=== PATIENT | female | born 1990 | race African-American/Black ===

== ENCOUNTER 2025-01-11 11:20 | Outpatient (AMB) | payer OTHER, SELFPAY ==
--- NOTE | 2025-01-11 11:25 | A.OFFPC_ITS ---
Vital Signs 01/11/25 11:31 Height 5 ft 7.13 in Weight 84.822 kg BMI 29.2 BP 104/60 Blood Pressure Location Lt brachial Position Sitting Respiration 18 Pulse 86 Pulse Source Pulse Oximeter Temp 97.8 F Temp Source Temporal Artery Scan Pulse Oximetry (%) 99 Oxygen Delivery Method Room Air Intake Visit Reasons: Establish Care/ New Patient Adult And Pediatric Neurologist Required: No Accompanied by: Self / Same As Patient Allergies No Known Allergies Allergy (Verified 01/11/25 11:25) Tobacco use date assessed: 01/11/25 Dental Screening Dental Screen Date: 01/11/25 Did you have a dental visit in the last 12 months?: Yes Did you have a dental problem in the last 6 months where you did not have access to dental care?: No Was dental information given to patient?: Patient has dentist HPI HPI Comments History of Present Illness Details 34-year-old female with history of SLE, right lower extremity DVT, Guillain- [place] presenting to the office today for annual physical exam and to establish care. Lives with her fiance and feels safe there. Not working currently, looking though in [employer]. Alcohol use once monthly, consumes about 2-3 per session. No history of cigarette smoking. No illicit drugs. MJ edibles. Exercises with strength training 4x per week. Health diet overall. Follows a healthy diet. She was previously seeing a PCP out of [facility] in [place] and recently moved to the area. SLE- Presents with arthralgias and fatigue typically. Follows with Rheumatology as well as Nephrology at [facility]. Follows every 3-6 months. Currently stable. On Benlysta, hydroxychloroquine, mycophenolate as well as chronic prednisone. [id number], unclear cause, hospitalized at [facility] RLE DVT -2022. Anticoagulated with Eliquis x6 months. Believe to be provoked following a plane ride Concerns: Lump with bordering ?divot? in the medial aspect of the right lower leg. No pain. No difficulty ambulating Reports recent black spots about the size of a quarter going up the back of the right calf but has since resolved and is at present in the office today Health Maintenance: Eye exams - [facility] annually. Wears corrective lenses, occasional contacts Dentist twice yearly [employer]- in [facility] [employer], next appt next month, pap smears UTD Mammos to start at age 41 Colonoscopy age 46 UTD with all vaccines except flu Sun screen with prolonged exposure Reviewed past medical, surgical, family, social history ROS: General: No fevers, malaise, unintentional weight loss HEENT: No blurred vision, diplopia. No sore throat, nasal congestion, rhinorrhea, sinus pain, ear pain. No hearing loss Neck - no adenopathy Cardiovascular: No chest pain, palpitations, or leg edema Respiratory: No shortness of breath, wheezing, cough Breast: No pain, palpable lumps, nipple inversion GI: No dysphagia, odynophagia, globus sensation. No abdominal pain, nausea, vomiting, diarrhea, constipation, melena, hematochezia : No dysuria, hematuria, increased urinary frequency, decreased urinary output. T[employer] ENGINEER: No abn vaginal bleeding or discharge MSK: No myalgia, back pain, arthralgias Neuro: No headaches, weakness, paresthesias Psych: no depression/anxiery. No AH/VH. No SI/HI Skin: No rashes or . see hpilesions EXAM: Constitutional - Awake and Alert, No apparent distress Eyes - PERRLA, EOMI. Anicteric Ears - external ears normal, canals clear, TMs intact and pearly [place] with good cone of light Nose- septum midline, nares clear, no sinus tenderness Mouth/throat- mucosa moist, tongue and uvula midline, no erythema/edema or tonsillar adenopathy. Neck-trachea midline, thyroid symmetric without palpable nodules, no adenopathy Cardiovascular - S1S2, RRR, No edema Respiratory - Normal lung expansion, Normal respiratory effort, No respiratory distress, CTA bilaterally Gastrointestinal - NT / ND; +BS; No rebound or guarding - No CVA tenderness Extremities - no calf tenderness bilaterally, no swelling Musculoskeletal - Normal inspection, normal ROM Skin - Warm/Dry, no concerning lesions. Small soft tissue mass, nontender, nonmobile medial aspect R lower leg. 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 1. Little interest or pleasure in doing things: not at all 2. Feeling down, depressed, or hopeless: not at all 3. Trouble falling or staying asleep, or sleeping too much: not at all 4. Feeling tired or having little energy: not at all 5. Poor appetite or overeating: not at all 6. Feeling bad about yourself - or that you are a failure or have let yourself or your family down: not at all 7. Trouble concentrating on things, such as reading the newspaper or watching television: not at all 8. Moving or speaking so slowly that other people could have noticed. Or the opposite - being so fidgety or restless that you have been moving around a lot more than usual: not at all 9. Thoughts that you would be better off or of hurting yourself in some way: not at all Total score: 0 Depression Screening Interpretation: Negative Depression Screening Done: Yes 36530 - PHQ-9 Billing: Yes Source: Developed by Drs. Juanjose Faustin, Denise Mobley, Basim Adames and colleagues, with an educational renae from [employer]. Thrive Questionnaire I am a: Patient What is your living situation today?: I have a steady place to live Within the past 12 months, did the food you bought not last and you didn't have the money to get more?: Never true Within the past 12 months, did you worry whether your food would run out before you got money to buy more?: Never true Do you have trouble paying for medicines?: No Do you have trouble getting transportation to medical appointments?: No Do you have trouble paying your heating and electricity bill?: No Do you have trouble taking care of your child, family member or friend?: No Do you have trouble with day-to-day activities such as bathing, preparing meals, shopping, managing finances, etc.?: No Are you currently unemployed and looking for a job?: Yes Are you interested in more education?: No Please select the resources that you would like help with: None Currently or been in a relationship where the following occur: No concerns reported THRIVE Score: 0 AUDIT C Alcohol Use Questionnaire (AUDIT-C) 1. How often do you have a drink containing alcohol?: Monthly or less 2. How many drinks containing alcohol do you have on a typical day when you are drinking?: 1 or 2 3. How often do you have six or more drinks on one occasion?: Never Total Score: 1 JA-7 AMB Questionnaire JA-7 Feeling nervous, anxious, or on edge: 0 = Not at all Not being able to stop or control worryin = Not at all Worrying too much about different things: 0 = Not at all Trouble relaxin = Not at all Being so restless that it is hard to sit still: 0 = Not at all Becoming easily annoyed or irritable: 0 = Not at all Feeling afraid as if something awful might happen: 0 = Not at all Total JA-7 score (0-4 normal; 5-9 mild; 10-14 moderate; 15-21 severe): 0 Source: Developed by Drs. Juanjose Faustin, Denise Mobley, Basim Adames and colleagues, with an educational renae from [employer]. Physical exam (Primary Care) Vital Signs: Last Vital Signs Temp 97.8 F 01/11/25 11:31 Pulse 86 01/11/25 11:31 Resp 18 01/11/25 11:31 BP 104/60 01/11/25 11:31 Pulse Ox 99 01/11/25 11:31 Oxygen Delivery Method Room Air 01/11/25 11:31 BMI result Body Mass Index 29.2 Tobacco/Smoking Status: Tobacco use Status Tobacco use date assessed 01/11/25 01/11/25 11:33 Patient Tobacco Use Status Never used Tobacco 01/11/25 11:33 e-Cigarette/Vaping Use Never Used 01/11/25 11:33 PHQ-9: PHQ-9 Score PHQ-9: Total score 0 01/11/25 11:51 Depression Screening Interpretation: Negative Currently or been in a relationship where the following occur: No concerns reported Coding Level of Care Code New Pt Prev Care 18-39yr(45294 Diagnoses Encounter for routine history and physical examination Z00.00 Right leg DVT I82.401 Mass of lower extremity R22.40 Additional Codes PHQ-9 - 52860 - PHQ-9 Billing: Yes ([id number]) Assessment & Plan Assessment & Plan (1) Encounter for routine history and physical examination: Code(s): Z00.00 - Encounter for general adult medical examination without abnormal findings Plan: 34-year-old female presenting for annual physical exam. Plan as below. (2) Right leg DVT: Comment: 2022. Was on eliquis x 6 months. Code(s): I82.401 - Acute embolism and thrombosis of unspecified deep veins of right lower extremity Category: Medical Plan: Provoked. Completed 6 months of anticoagulation (3) Mass of lower extremity: Code(s): R22.40 - Localized swelling, mass and lump, unspecified lower limb Category: Medical Plan: Ultrasound of the right lower extremity ordered for further evaluation. 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 Mammogram started age 41, colonoscopies at age 46 Continue following for annual skin exams and use sun protection Annual eye exams Dental exams twice yearly Wear seat belt in car Recommend regular exercise and healthy diet Follow-up in the office in 1 year, sooner if needed Orders: Orders Basic Metabolic Panel Today Z00.00 - Encounter for general adult medical examination without abnormal findings Complete Blood Count Auto Diff Today Z00.00 - Encounter for general adult medical examination without abnormal findings Hemoglobin A1c Today Z00.00 - Encounter for general adult medical examination without abnormal findings Liver Panel Today Z00.00 - Encounter for general adult medical examination without abnormal findings Lipid Panel Today Z00.00 - Encounter for general adult medical examination without abnormal findings Vitamin D 25-OH Total Today Z00.00 - Encounter for general adult medical examination without abnormal findings Vitamin B12 and Folate Today Z00.00 - Encounter for general adult medical examination without abnormal findings US Extremity Nonvas Limited RT Today R22.40 - Localized swelling, mass and lump, unspecified lower limb
[2025-01-11 11:31] VITALS: BP 104/60; PULSE 86; RESP 18; TEMP 36.6; O2SAT 99; BMI 29.2
== END 2025-01-11 12:04 | disposition home or self-care (01) ==
LOC: HO.HMCHD 11:21
PROVIDERS: PCP Physician Assistant; Visit Provider Physician Assistant
DX: Z00.00 Encounter for general adult medical examination without abnormal findings (principal); I82.401 Acute embolism and thrombosis of unspecified deep veins of right lower extremity; R22.40 Localized swelling, mass and lump, unspecified lower limb

== ENCOUNTER → 2025-01-11 11:20 | Outpatient (BNVA) | payer OTHER, SELFPAY | PROVIDERS: PCP Physician Assistant; Visit Provider Physician Assistant | DX: Z00.00 Encounter for general adult medical examination without abnormal findings (principal); Z76.89 Persons encountering health services in other specified circumstances; R22.41 Localized swelling, mass and lump, right lower limb; M32.9 Systemic lupus erythematosus, unspecified; Z86.718 Personal history of other venous thrombosis and embolism; Z13.31 Encounter for screening for depression | CPT/HCPCS: 96127 ==

== ENCOUNTER 2025-01-11 12:33 | Outpatient (REF) | payer OTHER, SELFPAY ==
[2025-01-11 13:26] LABS: MANUAL DIFF FLAG NO
[2025-01-11 13:47] LABS: Hematocrit 40.7 % (37.0-47.0); Hemoglobin 13.2 g/dl (12.0-16.0); Imm Gran Abs Auto 0.04 X10*3/uL (0.00-0.03); Imm Gran Pct Auto 0.4 % (0.0-0.4); Lymphocytes Absolute Auto 0.8 X10*3/uL (1.2-4.9); Mean Corpuscular HGB Conc 32.4 g/dl (31.0-35.0); Mean Corpuscular Hemoglobin 29.7 pg (27.0-33.0); Mean Corpuscular Volume 91.5 fL (80.0-98.0); NRBC Abs Auto 0.000 X10*3/uL (0.0-0.012); NRBC Pct Auto 0.0 /100WBC (0.0-0.2); Platelet Count 263 X10*3/uL (160-400); Red Blood Count 4.45 X10*6/uL (4.20-5.50); White Blood Count 8.9 X10*3/uL (4.8-10.8)
[2025-01-11 14:07] LABS: Alanine Aminotransferase 18 U/L (0-31); Albumin Level 3.8 g/dL (3.5-5.0); Alkaline Phosphatase 59 U/L (39-117); Anion Gap 10 (12-20); Aspartate Amino Transferase 32 U/L (5-31); Blood Urea Nitrogen 16 mg/dL (9-16); Calcium 9.2 mg/dL (8.4-10.2); Carbon Dioxide 25 mmol/L (22-29); Chloride 106 mmol/L (96-108); Cholesterol 137 mg/dL (<200); Estimated Glomerular Filt Rate > 60; HDL Cholesterol 41 mg/dL (>40); Potassium 3.8 mmol/L (3.3-5.1); Sodium 137 mmol/L (135-145); Total Protein 6.9 g/dL (6.5-8.0); Triglycerides 86 mg/dL (<150)
[2025-01-11 14:43] LABS: Folate 7.8 ng/mL (> or = 4.0); Vitamin B12 654 pg/mL (200-900)
--- OUTSIDE RECORDS SUMMARY | 2025-01-12 01:06 | XMS_ITS | Clinical Summary ---
Author Organization [facility] Address [address] [place] [address] Phone Care Team Providers Care Animal Cruelty Investigator Name Role Phone Physician, No Pcp Primary Care Provider Unavaila ble Allergies No known active allergies Medications No known medications Medical History Medical History Date Comments SLE (systemic lupus erythema tosus) ([facility] V24, [facility] V28) DX:SLE (systemic lupus eryt hematosus) ([facility]) History of eczema DX:History of eczema Social History Tobacco Use Types Packs/Day Years Used Date Smoking Tobacco: Never Smokeless Tobacco: Never Comments Unknown Sex and Gender Information Value Date Recorded Sex Assigned at Female 02/27/2024 7:11 PM EST Legal Sex Female 8:25 PM EST Gender Identity Female 02/27/2024 7:11 PM EST Sexual Orientation Straight 02/27/2024 7: 11 PM EST Obstetrics History Last Filed Vital Signs Vital Sign Reading Time Taken Comments Blood Pressure 113/76 02/27/2024 3:53 PM EST Pulse 73 02/27/2024 3:53 PM EST Temperature 36.5 C (97.7 F) 02/27/2024 3:53 PM EST Respiratory Rate 18 02/27/2024 3:53 PM EST Oxygen Saturation 97% 02/27/2024 3:53 PM EST Inhaled Oxygen Concentration - - Weight 83.9 kg (185 lb) 02/27/2024 3:53 PM EST Height 172.7 cm (5' 8 ) 02/27/2024 3:53 PM EST Body Mass Index 28.13 02/27/2024 3:53 PM EST Plan of Treatment Health Maintenance Due Date Last Done Comments DTaP,Tdap,and Td Vaccines (1 - Tdap) 09/30/2010 Hepatitis B Vaccines (1 of 3 - 19+ 3-dose series) 09/30/2010 Pneumococcal Vaccine: Pediatrics (0 to 5 Years) and At-Risk Patients (6 to 49 Years) (1 of 2 - PCV) 09/30/2010 HPV Vaccines (1 - Risk 3-dos e SCDM series) 09/30/2018 COVID-19 Vaccine (3 - Pfizer risk series) 07/01/2020 06/03/2020, 05/06/2020 Depression Screening 02/26/2024 HIV Screening 02/28/2024 Hepatitis C Screening 02/28/2024 Social Influencers of Health Screening 02/28/2024 Influenza Vaccine (#1) 2024 Cervical Cancer Screening: P ap Smear 04/08/2027 04/08/2024 RSV Immunization Adult Patients (1 - 1-dose 75+ series) 09/30/2066 HIB Vaccines Aged Out No longer eligi ble based on patient's age to complete this topic Hepatitis A Vaccines Aged Out No long er eligible based on patient's age to complete this topic IPV Vaccines Aged Out No longer eligi ble based on patient's age to complete this topic MMR Vaccines Aged Out No longer eligi ble based on patient's age to complete this topic Meningococcal ACWY Vaccine Aged Out N o longer eligible based on patient's age to complete this topic Meningococcal B Vaccine Aged Out No l onger eligible based on patient's age to complete this topic RSV Immunization Patients Under 20 months Aged Out No longer eligible b ased on patient's age to complete this topic Varicella Vaccines Aged Out No longer eligible based on patient's age to complete this topic Insurance [employer] Care Teams Animal Cruelty Investigator Relationship Specialty Start Date End Date Physician, No Pcp PCP - General 02/27/24
== END 2025-01-11 12:34 | disposition home or self-care (01) ==
LOC: HO.10HDL 12:33
PROVIDERS: Visit Provider Physician Assistant
DX: Z00.00 Encounter for general adult medical examination without abnormal findings (principal); Z13.6 Encounter for screening for cardiovascular disorders; Z13.1 Encounter for screening for diabetes mellitus; Z13.0 Encounter for screening for diseases of the blood and blood-forming organs and certain disorders involving the immune mechanism; Z13.21 Encounter for screening for nutritional disorder
CPT/HCPCS: 36415; 80048; 80061; 80076; 82306; 82607; 82746; 83036; 85025